=== PATIENT | male | born 1985 | race Caucasian/White ===

== ENCOUNTER 2016-09-03 19:03 | Emergency (ER) | payer SELFPAY ==
[~2016-09-03] VITALS: Ht 180.3 cm; Wt 118.2 kg
[~2016-09-03 19:03] MED LIST: ALBU2.5V4 INHALATION; ALBU8.5H4 INHALATION; BECL8.7A5 IH; ZIT250 PO
[2016-09-03 19:25] VITALS: BP 146/92; PULSE 81; RESP 18; O2SAT 95
--- NOTE | 2016-09-03 20:05 | ED.REPORT ---
HPI- Male Date of Service Sep 03, 2016 ED Provider: Kayy Conway MD Pt is a 31 y.o. male who presents to the ED accompanied by his girlfriend c/o a worsening abnormality to his right testicle onset 1 year ago. Pt states that he is not experiencing any pain or tenderness. His girlfriend is the one who noticed the abnormality and states that his right testicle feels 'lumpy', like it is in 2 separate parts, and is growing in size. Pt states that he has not noticed any changes himself. He denies urinary symptoms, fever, chills, and abdominal pain. Nursing Notes Stated Complaint: ABNORMALITY IN RT TESTICAL Chief Complaint: General Complaint Nursing Notes Reviewed: Yes Allergies: Coded Allergies: Sulfa (Sulfonamide Antibiotics) (Unverified Adverse Reaction, Severe, ) Scheduled Albuterol HFA (Albuterol HFA) 8.5 Gm Hfa.aer.ad 2 PUFF INHALATION Q4H Azithromycin (Zithromax) 250 Mg Tablet 250 MG PO DIRECTED 2 tabs on day 1, then 1 tab daily Beclomethasone Dipropionate (Qvar) 8.7 Gm Aer.w.adap 8.7 GM IH BID Scheduled PRN Albuterol HFA (Albuterol HFA) 8.5 Gm Hfa.aer.ad 2 PUFF INHALATION Q4H PRN PRN For Shortness of Breath Albuterol Neb Soln (Albuterol Neb Soln) 2.5 Mg/3 Ml Vial.neb 2.5 MG INHALATION Q4H PRN PRN For Shortness of Breath General Time Seen by MD: 20:04 Chief Complaint Testicle swollen right Hx Obtained From: Patient Arrived By: Walk-in Onset Occurred: More than a week ago... 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 Physical Exam Initial Vital Signs Vital Signs (First) Date Time Temp Pulse Resp B/P Pulse Ox O2 Delivery O2 Flow Rate FiO2 09/03/16 19:25 36.2 81 18 146/92 95 Room Air Initial VS: Reviewed, Vital signs abnormal Head / Eyes: Atraumatic, Normocephalic Respiratory: Breath sounds normal, Clear to auscultation, No respiratory distress Cardiovascular: Regular rate & rhythm, Heart sounds normal, Intact distal pulses Extremities: Vascular intact, Neuro intact Skin: Warm, Dry, No cyanosis Neurologic: Alert, Oriented, Nonfocal Psychiatric: Mood/affect normal, Behavior normal, Normal thought content Male Genitourinary: Atraumatic, Penis NL, Epididymis NL Testes / Epidid / Scrotum: Positive: Varicocele R (Upper portion) Right testicle feels like a bag of worms, consistant with varicocele Right testicle size is similar to left. General/Constitutional: Awake, Alert, No acute distress, Well appearing, Well developed, Well hydrated, Well nourished Appearance / Presentation: Positive: Obese Abdomen: Atraumatic, Soft, Non-tender, No distention Re-Eval/Medical Decision Med Decision/Clinical Course Patient presents with an abnormality to his right testicle which is ongoing for about 1 year, his exam is consistent with a varicocele. Source of Hx: Old records Counseled Regarding: Diagnosis, Lab results, Need for follow-up, When/why to return to ED Discharge & Departure Impression: Primary Impression: Right varicocele Disposition: Home Discharge Condition All VS Reviewed: Yes Condition: Stable Patient Instructions: Varicocele (ED) Additional Instructions: Upon examination it appears that you have right sided varicocele. I recommend you follow-up with a urologist as you will need an ultrasound to confirm this diagnosis. Seek care if you experience any new or worsening symptoms. Referrals: NOPCP (PCP) Carla Elkins MD Other Scribe Attestation Portions of this note were transcribed by Kalyani Tamayo. I, Dr. Conway personally performed the history, physical exam and medical decision-making; I reviewed and confirmed the accuracy of the information in the transcribed note. Signed by: Elizabeth Rouse, 09/03/2016 and 2053. copies to: Carla Elkins MD, Jena M MD Sep 03, 2016 20:05 KALYANI TAMAYO Sep 03, 2016 20:24
[2016-09-03 20:34] VITALS: BP 136/85; PULSE 88; RESP 18; O2SAT 97
== END 2016-09-03 20:31 | disposition home or self-care (01) ==
LOC: SED 19:03
DX: I86.1 Scrotal varices (principal); J45.909 Unspecified asthma, uncomplicated; Z88.2 Allergy status to sulfonamides

== ENCOUNTER 2017-01-19 17:44 | Emergency (ER) | payer SELFPAY ==
[~2017-01-19] VITALS: Ht 180.3 cm; Wt 120.5 kg
[2017-01-19 17:47] VITALS: BP 143/91; PULSE 92; RESP 20; O2SAT 96
--- NOTE | 2017-01-19 18:23 | DRSVH ---
PROCEDURE: X-RAY LEFT FOOT COMPLETE, MINIMUM THREE VIEWS ([id number]) INDICATIONS: injury TECHNIQUE: 3 views of the foot were acquired. COMPARISON: None. FINDINGS: Bones: No fractures or dislocations. No suspicious bony lesions. Soft tissues: No tibiotalar joint effusion. Achilles tendon appears normal. IMPRESSION: No fracture. No osseous lesion. If there are persistent symptoms or clinical suspicion f or pathology, then repeat radiographs or advanced imaging (CT, MRI or bone scan) should be considered for further evaluation. Dictated by: Maya Ricks MD, PhD on 01/19/2017 at 18:21 Approved by: Maya Ricks MD, PhD on 01/19/2017 at 18:21
--- NOTE | 2017-01-19 18:24 | DRSVH ---
PROCEDURE: X-RAY LEFT ANKLE, MINIMUM THREE VIEWS ([id number]) INDICATIONS: injury TECHNIQUE: 3 views of the ankle were acquired. COMPARISON: None. FINDINGS: Bones: No fractures or dislocations. Ankle mortise is normally aligned. No suspicious bony lesions . Soft tissues: No tibiotalar joint effusion. Achilles tendon appears normal. IMPRESSION: No fracture. No osseous lesion. If there are persistent symptoms or clinical suspicion f or pathology, then repeat radiographs or advanced imaging (CT, MRI or bone scan) should be considered for further evaluation. Dictated by: Maya Ricks MD, PhD on 01/19/2017 at 18:22 Approved by: Maya Ricks MD, PhD on 01/19/2017 at 18:22
--- NOTE | 2017-01-19 18:27 | ED.REPORT ---
HPI-Extremity Problem Lower Date of Service January 19, 2017 ED Provider: Tu Del Rosario MD Patient is a 31 year old male who presents to the ED complaining of left foot/ ankle pain secondary to an injury that occurred last night. Associated symptoms include swelling and bruising to the affected foot. Patient reportedly tripped and landed on the foot and is unsure of the mechanism of injury but believes he inverted the ankle. Patient is unable to bear weight. He denies head injury, vomiting or LOC. Nursing Notes Stated Complaint: LEFT FOOT PAIN Chief Complaint: Extremity Trauma Nursing Notes Reviewed: Yes Allergies: Coded Allergies: Sulfa (Sulfonamide Antibiotics) (Unverified Adverse Reaction, Severe, ) Scheduled Albuterol HFA (Albuterol HFA) 8.5 Gm Hfa.aer.ad 2 PUFF INHALATION Q4H Azithromycin (Zithromax) 250 Mg Tablet 250 MG PO DIRECTED 2 tabs on day 1, then 1 tab daily Beclomethasone Dipropionate (Qvar) 8.7 Gm Aer.w.adap 8.7 GM IH BID Scheduled PRN Albuterol HFA (Albuterol HFA) 8.5 Gm Hfa.aer.ad 2 PUFF INHALATION Q4H PRN PRN For Shortness of Breath Albuterol Neb Soln (Albuterol Neb Soln) 2.5 Mg/3 Ml Vial.neb 2.5 MG INHALATION Q4H PRN PRN For Shortness of Breath General Time Seen by MD: 18:24 Chief Complaint Foot injury left Hx Obtained From: Patient Arrived By: Walk-in Onset Occurred: Yesterday Symptom Duration: Since onset Location: : Foot left Quality: Painful Severity: Current: Moderate Severity: Maximum: Moderate Associated with: Reports: Unable to bear weight, Unable to walk, Denies: Loss of consciousness, Nausea, Vomiting Pertinent Negative: Pt denies other symptoms Recent Healthcare: No recent doctor visit, No recent hospitalization Past Medical History Past Medical History Asthma Past Surgical History ear tubes at 6 months Family History noncontributory Smoking History Never Smoker Social History Alcohol Use: "Social" Drug Use: Denies drug use Other Social History: Good social support, , Local resident Occupation getting 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 GI: Denies: Nausea, Vomiting Physical Exam Initial Vital Signs Vital Signs (First) Date Time Temp Pulse Resp B/P Pulse Ox O2 Delivery O2 Flow Rate FiO2 01/19/17 17:47 37.4 92 20 143/91 96 Room Air Initial VS: Reviewed Head / Eyes: Atraumatic, Normocephalic, PERRL Neck: Supple, Non-tender, Full range of motion Upper Extremities: Vascular intact, Neuro intact, No swelling, No tenderness Skin: Warm, Dry, No cyanosis Neurologic: Alert, Oriented, Nonfocal Psychiatric: Mood/affect normal, Behavior normal, Normal thought content Lower Extremity / Pelvis / MS: Atraumatic, Inspection NL, No deformity, Neurologic intact, Vascular intact Ankle / Foot: Atraumatic, No deformity, Neurologic intact, Vascular intact ( Good DP and PT pusles ) Left Ankle: Positive: Tenderness present... (Lateral aspect extend from lateral malleolus to foot) Left Foot: Positive: Tenderness present... General/Constitutional: Awake, Alert, No acute distress Respiratory / Chest: Atraumatic, Breath sounds NL, Breath sounds = bilat, No respiratory distress Cardiovascular: Heart rate NL, Regular rhythm, Heart sounds NL, No gallop, No murmurs, No rubs Interpretation & Diagnostics X-Ray Interpretation Xray Interpretation: Foot IMPRESSION: No fracture. No osseous lesion. If there are persistent symptoms or clinical suspicion for pathology, then repeat radiographs or advanced imaging (CT, MRI or bone scan) should be considered for further evaluation. Dictated by: Myaa Ricks MD, PhD on 01/19/2017 at 18:21 X-Ray Ordered: Foot left Interpretation / Wet Read by: Interpret - Radiologist Xray Interpretation: IMPRESSION: No fracture. No osseous lesion. If there are persistent symptoms or clinical suspicion for pathology, then repeat radiographs or advanced imaging (CT, MRI or bone scan) should be considered for further evaluation. Dictated by: Maya Ricks MD, PhD on 01/19/2017 at 18:22 X-Ray Ordered: Ankle left Interpretation / Wet Read by: Interpret - Radiologist Procedures Splint Application - Fx Mgt Time: 18:57 Procedure Performed by: Supervising Floorperson Post-Procedure / Complications: Cap refill normal, Post splint vascular nl, Post splint neuro nl, Condition improved, Tolerated procedure well, Patient stable Splint Post-Application Eval Extremity Condition: Cap refill < 2 sec, Distal sensation intact, Distal motor Intact, No compartment syndrome Re-Eval/Medical Decision Med Decision/Clinical Course Patient is a 31 year old male who presents to the ED complaining of left foot/ ankle pain secondary to an injury that occurred last night. Associated symptoms include swelling and bruising to the affected foot. Patient reportedly tripped and landed on the foot and is unsure of the mechanism of injury but believes he inverted the ankle. Patient is unable to bear weight. He denies head injury, vomiting or LOC. Here in the emergency room the patient is alert/oriented, hemodynamically stable and neurovascularly intact in the affected extremity. Ankle X-ray IMPRESSION: No fracture. No osseous lesion. If there are persistent symptoms or clinical suspicion for pathology, then repeat radiographs or advanced imaging (CT, MRI or bone scan) should be considered for further evaluation. Foot IMPRESSION: No fracture. No osseous lesion. If there are persistent symptoms or clinical suspicion for pathology, then repeat radiographs or advanced imaging (CT, MRI or bone scan) should be considered for further evaluation. Overall presentation was consistent with ankle sprain. No significant instability. Provided with air cast and crutches. Advised to take ibuprofen and first dose was given here. Elevate extremity, apply ice packs, do range of motion exercises. Prior to discharge follow-up and return precautions were reviewed in detail with the patient who verbalized understanding and agreement with the plan. The patient was discharged in stable condition. Counseled Regarding: Diagnosis, Need for follow-up, When/why to return to ED Discharge & Departure Impression: Primary Impression: Ankle sprain Encounter type: initial encounter Involved ligament of ankle: tibiofibular ligament Laterality: left Qualified Code: S93.432A - Sprain of tibiofibular ligament of left ankle, initial encounter Additional Impressions: Fall from ground level Ankle pain Laterality: left Chronicity: acute Qualified Code: M25.572 - Pain in left ankle and joints of left foot Disposition: Home Discharge Condition All VS Reviewed: Yes Condition: Improved Patient Instructions: Ankle Sprain (GEN) Additional Instructions: Thank you for seeking care at the emergency room. It is difficult for us to make definitive diagnoses in the ED but we believe that your pain is due to ankle sprain. Your X-ray was negative for fracture. Use the crutches as directed. Keep the area elevated and take 600 mg ibuprofen every 6-8 hours as needed for pain. Stop taking if you develop any abdominal discomfort. Try ankle range of motion exercises 1-2 times per day. You should follow-up with your primary doctor in the next week to remove the splint and obtain repeat X-ray's if symptoms are still present. You should return to the ED immediately if you develop redness, swelling, numbness, weakness or any other concerning signs or symptoms. Thank you for letting us partake in your care today. Referrals: NOPCP (PCP) Scribe Attestation Portions of this note were transcribed by Santiago Quijano. I, Dr. Del Rosario personally performed the history, physical exam and medical decision-making; I reviewed and confirmed the accuracy of the information in the transcribed note. Signed by: Elizabeth Simental, 01/19/17 2556. copies to: [facility] Tu Del Rosario MD January 19, 2017 18:27 SANTIAGO QUIJANO January 19, 2017 18:53
[2017-01-19 20:06] VITALS: BP 138/90; PULSE 88; RESP 16; O2SAT 99
== END 2017-01-19 20:07 | disposition home or self-care (01) ==
LOC: SED 17:44
DX: S93.432A Sprain of tibiofibular ligament of left ankle, initial encounter (principal); W10.1XXA Fall (on)(from) sidewalk curb, initial encounter; Y93.9 Activity, unspecified; Y92.410 Unspecified street and highway as the place of occurrence of the external cause; Y99.8 Other external cause status; J45.909 Unspecified asthma, uncomplicated; Z88.2 Allergy status to sulfonamides

== ENCOUNTER 2017-03-26 20:34 | Emergency (ER) | payer OTHER ==
[~2017-03-26] VITALS: Ht 180.3 cm; Wt 115.9 kg
[2017-03-26 20:43] VITALS: BP 163/82; PULSE 78; RESP 20; O2SAT 98
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
[2017-03-26] MEDS ORDERED: TdaP Vaccine 0.5 mL Inj IM ONE (21:35)
[2017-03-26] MEDS ORDERED: Bacitracin Ointment Packet TOPICAL ONE (21:35)
[2017-03-26] MEDS ORDERED: DOXY-232 PO (21:38)
[2017-03-26 22:58] VITALS: BP 137/89; PULSE 99; RESP 20; O2SAT 97
== END 2017-03-26 22:57 | disposition home or self-care (01) ==
LOC: SED 20:34
DX: L03.114 Cellulitis of left upper limb (principal); L28.0 Lichen simplex chronicus; B95.62 Methicillin resistant Staphylococcus aureus infection as the cause of diseases classified elsewhere; S61.238A Puncture wound without foreign body of other finger without damage to nail, initial encounter; W46.0XXA Contact with hypodermic needle, initial encounter; Y92.79 Other farm location as the place of occurrence of the external cause; Y93.89 Activity, other specified; Y99.0 Civilian activity done for income or pay; L02.414 Cutaneous abscess of left upper limb; L02.413 Cutaneous abscess of right upper limb; J45.909 Unspecified asthma, uncomplicated; Z23 Encounter for immunization; Z88.2 Allergy status to sulfonamides

== ENCOUNTER 2017-04-18 17:49 | Emergency (ER) | payer SELFPAY ==
[~2017-04-18] VITALS: Ht 180.3 cm; Wt 136.4 kg
[~2017-04-18 17:49] MED LIST changes: +DOXY-232 PO
[2017-04-18 18:00] VITALS: BP 149/94; PULSE 91; RESP 18; O2SAT 98
[2017-04-18 19:11] LABS: BASOPHILS % (AUTO) 0.4 % (0-3); EOSINOPHILS % (AUTO) 1.9 % (0-5); MONOCYTES % (AUTO) 7.7 % (4-12); Mean Corpuscular Hemoglobin 27.2 pg (27.0-35.0); Mean Corpuscular Volume 81.4 fL (81-100); NEUTROPHILS % (AUTO) 69.5 % (40-74); Platelet Count 263 bil/L (150-400)
[2017-04-18 19:31] LABS: Magnesium 2.3 mg/dL (1.6-2.6)
[2017-04-18 19:49] LABS: TROPONIN T < 0.010 ug/L (0.0-0.011)
--- NOTE | 2017-04-18 19:53 | ED.REPORT ---
HPI-Rash / Abscess Date of Service Apr 18, 2017 ED Provider: Dr. Hao Ivey MD A 31 year old male with a history of asthma, recent MRSA and neurodermatitis presents to the ED with multiple lesions to all four extremities that first appeared 3 weeks ago. The patient was seen in the ED on 03/26 for similar lesions and was placed on doxycycline after lab work confirmed MRSA infection. He took the full course of antibiotics with little relief and his discomfort has become progressively worse since finishing the antibiotics. He denies any recent fever or chills. Nursing Notes Stated Complaint: INFECTION, LEG/ARM Chief Complaint: General Complaint Nursing Notes Reviewed: Yes Allergies: Coded Allergies: Sulfa (Sulfonamide Antibiotics) (Unverified Adverse Reaction, Severe, 03/26) Scheduled Albuterol HFA (Albuterol HFA) 8.5 Gm Hfa.aer.ad 2 PUFF INHALATION Q4H Azithromycin (Zithromax) 250 Mg Tablet 250 MG PO DIRECTED 2 tabs on day 1, then 1 tab daily Beclomethasone Dipropionate (Qvar) 8.7 Gm Aer.w.adap 8.7 GM IH BID Doxycycline Monohyd (Doxycycline Monohyd) 100 Mg Tablet 100 MG PO BID Scheduled PRN Albuterol HFA (Albuterol HFA) 8.5 Gm Hfa.aer.ad 2 PUFF INHALATION Q4H PRN PRN For Shortness of Breath Albuterol Neb Soln (Albuterol Neb Soln) 2.5 Mg/3 Ml Vial.neb 2.5 MG INHALATION Q4H PRN PRN For Shortness of Breath General Time Seen by MD: 19:52 Chief Complaint Return visit, cellulitis Hx Obtained From: Patient Arrived By: Walk-in Onset Occurred: More than a week ago... (3 weeks) Context of Onset: Exposure, MRSA Symptom Duration: Since onset Location: : Generalized Quality: Itching, Painful Severity: Current: Mild Severity: Maximum: Mild Associated with: Denies Fever Pertinent Negative: Pt denies other symptoms Recent Healthcare: No recent hospitalization, Recent doctor visit Past Medical History Past Medical History Asthma Neurodermatitis MRSA Past Surgical History ear tubes at 6 months Family History noncontributory Smoking History Never Smoker Social History Alcohol Use: "Social" Drug Use: Denies drug use Other Social History: Good social support, , Local resident Occupation getting this Friday Ambulatory Status Independent Review of Systems + Persistent lesions Constitutional: Denies: Chills, Fever Skin: Reports Rash, Reports Swelling Complete sys rev & neg: except as marked. Physical Exam Initial Vital Signs Vital Signs (First) Date Time Temp Pulse Resp B/P Pulse Ox O2 Delivery O2 Flow Rate FiO2 04/18/17 18:00 37.3 91 18 149/94 98 Initial VS: Reviewed Neck: Supple, Non-tender, Full range of motion Neurologic: Alert, Oriented, Nonfocal Psychiatric: Mood/affect normal, Behavior normal, Normal thought content General/Constitutional: Awake, Alert, No acute distress Skin: Atraumatic, Color NL, No rash, Warm, Dry Color / Condition: Positive: Lesion present... Rash / Lesion Notes: LESION: Multiple excoriating spots diffusely present in all 4 extremities Some of the lesions are honey crusted Head / Eyes: Atraumatic, Normocephalic, PERRL ENT: Atraumatic, Airway patent, Mucous membranes moist Respiratory / Chest: Atraumatic, No respiratory distress Cardiovascular: Peripheral circulation NL, Pulses = bilaterally Upper Extremity / MS: Atraumatic, Neurologic intact, Vascular intact Lower Extremity / Pelvis / MS: Atraumatic, Neurologic intact, Vascular intact Interpretation & Diagnostics Lab Results Interpretation Result Diagram: 04/18/17 1804 04/18/17 1804 Test 04/18/17 18:04 White Blood Count 12.3th/mm3 (3.8-10.1) Red Blood Count 5.66mil/mm3 (4.40-5.80) Hemoglobin 15.4g/dL (13.8-17.2) Hematocrit 46.1% (41.0-50.0) Mean Corpuscular Volume 81.4fL (81-100) Mean Corpuscular Hemoglobin 27.2pg (27.0-35.0) Mean Corpuscular Hemoglobin Concent 33.4% (32.0-37.0) Red Cell Distribution Width 13.5% (12.3-15.4) Platelet Count 263bil/L (150-400) Neutrophils (%) (Auto) 69.5% (40-74) Lymphocytes (%) (Auto) 17.7% (14-46) Monocytes (%) (Auto) 7.7% (4-12) Eosinophils (%) (Auto) 1.9% (0-5) Basophils (%) (Auto) 0.4% (0-3) Sodium Level 138mEq/L (134-144) Potassium Level 4.2mEq/L (3.5-5.2) Chloride Level 101mEq/L (97-108) Carbon Dioxide Level 23mmol/L (18-29) Blood Urea Nitrogen 16mg/dL (6-20) Creatinine 0.71mg/dL (0.76-1.27) Estimat Glomerular Filtration Rate 139mL/min (>59) Glucose Level 100mg/dL (60-99) Lactic Acid Level 1.3mmol/L (0.4-2.0) Calcium Level 9.2mg/dL (8.5-10.1) Magnesium Level 2.3mg/dL (1.6-2.6) Total Bilirubin 0.6mg/dL (0.0-1.2) Aspartate Amino Transf (AST/SGOT) 65U/L (0-50) Alanine Aminotransferase (ALT/SGPT) 103U/L (0-44) Alkaline Phosphatase 102U/L (25-150) Troponin T < 0.010ug/L (0.0-0.011) Total Protein 8.1g/dL (6.4-8.4) Albumin 4.0g/dL (3.4-5.0) Procalcitonin 0.07ng/mL (0.00-0.08) Re-Eval/Medical Decision Re-Evaluation/Progress : Time of Eval: 20:02 Patient Status: Condition improved Re-Evaluation/Progress Note: He is informed of his current results and the intended treatment plan. All of the patient's questions about his likely diagnosis and disposition are addressed. Patient is given strict return precautions. He understands and agree with the plan. Counseled Regarding: Diagnosis, Need for follow-up, When/why to return to ED Discharge & Departure Impression: Primary Impression: Cellulitis Site of cellulitis: extremity Site of cellulitis of extremity: lower extremity Laterality: unspecified laterality Qualified Code: L03.119 - Cellulitis of unspecified part of limb Disposition: Home Discharge Condition All VS Reviewed: Yes Condition: Improved Patient Instructions: MRSA (Methicillin-Resistant Staphylococcus Aureus) (ED) Additional Instructions: Thank you for trusting us with your care this evening. Your emergency department examination today is reassuring that there is no dangerous cause for concern a this time. Your symptoms are likely due to MRSA. Take the full course of Clindamycin (4 times daily for 5 days) as directed. Stop taking if you begin to develop diarrhea. Apply ointment to the affected areas. Schedule a follow-up appointment with your primary care physician in one week for a recheck Please return to the emergency department for any new or worsening conditions including any fevers, chills, nausea, vomiting, diarrhea, increased redness, swelling, excessive sweating, lightheadedness, weakness or any other concerning symptoms. Referrals: [facility] (PCP) [facility] Scribe Attestation Portions of this note were transcribed by Santiago Quijano. I, Dr. Ivey personally performed the history, physical exam and medical decision-making; I reviewed and confirmed the accuracy of the information in the transcribed note. Hao Ivey DO Apr 18, 2017 19:52 SANTIAGO QUIJANO Apr 18, 2017 20:02
[2017-04-18] MEDS ORDERED: Mupirocin 2% 22 Gm Ointment TOPICAL ONE (20:10)
== END 2017-04-18 20:41 | disposition home or self-care (01) ==
LOC: SED 17:49
DX: L03.115 Cellulitis of right lower limb (principal); L03.116 Cellulitis of left lower limb; J45.909 Unspecified asthma, uncomplicated; Z86.14 Personal history of Methicillin resistant Staphylococcus aureus infection; L20.81 Atopic neurodermatitis; Z88.2 Allergy status to sulfonamides